=== PATIENT | female | born 1995 | race Caucasian/White ===

== ENCOUNTER 2021-06-19 08:15 | Emergency (ER) | payer MEDICAID ==
[~2021-06-19] VITALS: Ht 165.1 cm; Wt 122.7 kg
[~2021-06-19 08:15] MED LIST: IBUP-1986 PO; MIRT-116 PO; MIRT30TA3 PO; ONDA4TAB6 PO
[2021-06-19 08:27] VITALS: BP 157/88
== END 2021-06-19 14:30 | disposition left against medical advice (07) ==
LOC: ER 08:15
DX: M54.59 Other low back pain (principal); Z53.21 Procedure and treatment not carried out due to patient leaving prior to being seen by health care provider